=== PATIENT | female | born 1980 | race Caucasian/White ===

== ENCOUNTER → 2018-12-31 16:00 | Emergency (ER) | payer OTHER ==
[~2018-12-31 16:00] MED LIST: ALPRAZolam TAB* 0.5 MG PO ONE; Buprenorp/Nalox 8-2 MG FILM SL FILM ONE; Methylphenidate TAB* 10 MG PO ONE; QUEtiapine TAB* 100 MG PO ONE; Venlafaxine EXT RELEASE CAP* 75 MG PO ONE
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
[2018-12-31 19:01] VITALS: BP 108/75
== END | disposition home or self-care (01) ==
LOC: ED 16:00
DX: Z76.0 Encounter for issue of repeat prescription (principal); F41.9 Anxiety disorder, unspecified; F32.9 Major depressive disorder, single episode, unspecified
CPT/HCPCS: 99282; A9270-GY

== ENCOUNTER 2019-01-01 15:41 | Emergency (ER) | payer OTHER ==
[2019-01-01] MEDS ORDERED: Buprenorp/Nalox 8-2 MG FILM SL FILM ONE (16:54)
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
[2019-01-01] MEDS ORDERED: QUEtiapine TAB* 25 MG PO ONE (17:33)
[2019-01-01] MEDS ORDERED: ALPRAZolam TAB* 0.5 MG PO ONE (17:33)
[2019-01-01] MEDS ORDERED: Venlafaxine EXT RELEASE CAP* 75 MG PO ONE (17:33)
[2019-01-01] MEDS ORDERED: QUEtiapine TAB* 100 MG PO ONE (17:33)
[2019-01-01 17:53] VITALS: BP 121/66
== END 2019-01-01 17:52 | disposition home or self-care (01) ==
LOC: ED 15:41
DX: Z76.0 Encounter for issue of repeat prescription (principal); F41.9 Anxiety disorder, unspecified; F32.9 Major depressive disorder, single episode, unspecified; F17.290 Nicotine dependence, other tobacco product, uncomplicated; Z79.899 Other long term (current) drug therapy
CPT/HCPCS: 99282; A9270-GY

== ENCOUNTER 2019-05-02 18:09 | Emergency (ER) | payer OTHER ==
[2019-05-02 18:43] VITALS: BP 105/54
[2019-05-02] MEDS ORDERED: Albuterol 2.5 MG/3 ML NEB.SOL* (0.083%) INH ONE (19:42)
--- NOTE | 2019-05-02 19:42 | UC ---
Respiratory Complaint HPI - HPI Summary HPI Summary: per maxillofacial surgeon: "Productive cough and chest congestion x5 day. No measured fever, but felt hot/ cold chills. Tried tylenol and cough syrup prn w/ no relief. Cough worse at night. " -no fevers -hysterectomy + wheezing in chest. no h/o asthma but has needed alb for similar sx in past - History of Current Complaint Chief Complaint: UCRespiratory Stated Complaint: COUGH Time Seen by Provider: 05/02/19 18:12 Pain Intensity: 0 - Allergies/Home Medications Allergies/Adverse Reactions: Allergies Allergy/AdvReac Type Severity Reaction Status Date / Time ondansetron [From Zofran] Allergy Itching Verified 05/02/19 18:32 prochlorperazine Allergy Itching Verified 05/02/19 18:32 [From Compazine] promethazine [From Phenergan] Allergy Itching Verified 05/02/19 18:32 tramadol Allergy Hives Verified 05/02/19 18:32 Home Medications: Home Medications Meloxicam [Qmiiz Odt] 1 tab DAILY 05/02/19 [History Confirmed 05/02/19] QUEtiapine TAB* [Seroquel 100 MG *] 300 mg PO BEDTIME 05/02/19 [History Confirmed 05/02/19] PMH/Surg Hx/FS Hx/Imm Hx Previously Healthy: Yes Psychological History: Anxiety - Surgical History Surgical History: Yes Surgery Procedure, Year, and Place: Hysterectomy. RIGHT foot fracture, pins/ screws placed. cyst removed ovaries. scar tissues removed from intestine d/t e.coli infection as child - Family History Known Family History: Positive: Hypertension, Diabetes Negative: Respiratory Disease - no asthma - Social History Alcohol Use: Rare Substance Use Type: Other Substance Use Comment - Amount & Last Used: suboxone Smoking Status (MU): Light Every Day Tobacco Smoker Type: Cigarettes Amount Used/How Often: 1/2 PPD - Immunization History Most Recent Influenza Vaccination: states, long time ago Most Recent Pneumonia Vaccination: none Review of Systems All Other Systems Reviewed And Are Negative: Yes Constitutional: Positive: Negative, Chills, Fatigue Skin: Positive: Negative. Negative: Rash Eyes: Positive: Negative ENT: Positive: Sore Throat, Ear Ache, Nasal Discharge, Sinus Congestion Respiratory: Positive: Cough. Negative: Shortness Of Breath Cardiovascular: Positive: Negative. Negative: Palpitations, Chest Pain Gastrointestinal: Positive: Negative Genitourinary: Positive: Negative Motor: Positive: Negative Neurovascular: Positive: Negative Musculoskeletal: Positive: Negative Neurological: Positive: Negative Psychological: Positive: Negative Is Patient Immunocompromised?: No Physical Exam Triage Information Reviewed: Yes Appearance: Well-Appearing, No Pain Distress, Ill-Appearing - mild Vital Signs: Initial Vital Signs Temp 98.1 F 05/02/19 18:36 Pulse 64 05/02/19 18:36 Resp 16 05/02/19 18:36 BP 105/54 05/02/19 18:36 Pulse Ox 97 05/02/19 18:36 Eye Exam: Normal ENT Exam: Normal ENT: Positive: Pharyngeal erythema - + PND., Nasal congestion, TMs normal, Uvula midline. Negative: Tonsillar swelling, Tonsillar exudate, Sinus tenderness Neck exam: Normal Neck: Positive: Supple, Nontender, No Lymphadenopathy Respiratory: Positive: Normal breath sounds, No respiratory distress, No accessory muscle use, Rhonchi, Wheezing. Negative: Crackles, Stridor Cardiovascular Exam: Normal Cardiovascular: Positive: RRR Abdomen Description: Positive: Nontender, Soft Musculoskeletal Exam: Normal Neurological Exam: Normal Psychological Exam: Normal Skin Exam: Normal Respiratory Course/Dx - Course Course Of Treatment: -albuterol neb x 1 w/ improvement. improved breath sounds but still w/ wheezing throughout. -CXR read by myself - no e/o infiltrate appreciated -understands that this will be read tomorrow officially by radiaologist - Differential Dx/Diagnosis Differential Diagnosis/HQI/PQRI: Bronchitis, Lower Resp Infection, Sinusitis Provider Diagnosis: Bronchitis Discharge ED - Sign-Out/Discharge Documenting (check all that apply): Patient Departure All imaging exams completed and their final reports reviewed: No Studies - Discharge Plan Condition: Stable Disposition: HOME Prescriptions: Albuterol HFA INHALER* [Ventolin HFA Inhaler*] 2 puff INH Q4H PRN 10 Days #1 mdi PRN Reason: Cough guaiFENesin LIQ* [Robitussin*] 5 mg PO Q4H PRN 7 Days #120 udc PRN Reason: Cough methylPREDNISolone [Medrol Dosepak 4 MG*] 4 mg PO DAILY #1 ry Referrals: No Primary Care Phys,NOPCP [Primary Care Provider] - Additional Instructions: -We talked about the potential side effects of prednisone including but not limited too increased energy/decreased sleep, stomach upset, irritability, hunger, elevated blood sugars and blood pressures, problems with your adrenal glands and cut off of the blood supply going to your hip. 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 -We are using the smaller dose of prednisone to reduce risk of psychiatric side effects. You did say you have taken prednisone in the past. Stop the medicine and follow up immediately if you have psychiatric side effects. Please go to the ER if your symptoms worsen. Use the albuterol every 4- 6 hrs as needed for cough. -The radiologist will be reading your chest xray in the morning. You should be getting a telephone call if there is anything abnormal on the xray that I did not see. - Billing Disposition and Condition Condition: STABLE Disposition: Home
== END 2019-05-02 20:31 | disposition home or self-care (01) ==
LOC: UCCORT 18:09
DX: J40 Bronchitis, not specified as acute or chronic (principal); F17.210 Nicotine dependence, cigarettes, uncomplicated; Z90.710 Acquired absence of both cervix and uterus; Z88.8 Allergy status to other drugs, medicaments and biological substances; Z88.5 Allergy status to narcotic agent
CPT/HCPCS: 71046; 99212; G0463

== ENCOUNTER 2019-05-30 23:53 | Inpatient (IN) | payer OTHER ==
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
[2019-05-31 00:54] LABS: ABS Lymphocytes 1.2 10^3/ul (1.0-4.8); ABS Monocytes 0.3 10^3/ul (0-0.8); ABS Neutrophils 7.6 10^3/ul (1.5-7.7); Eosinophil % 0.2 %; Hematocrit 44 % (35-47); Hemoglobin 15.2 g/dL (12.0-16.0); Lymphocyte % 13.1 %; Mean Corpuscular HGB Conc 34 g/dL (31-36); Mean Corpuscular Hemoglobin 31 pg (27-31); Mean Corpuscular Volume 90 fL (80-97); Mean Platelet Volume 7.6 fL (7.4-10.4); Platelet Count 321 10^3/uL (150-450); Red Blood Count 4.92 10^6 /uL (3.70-4.87); Red Cell Distribution Width 13 % (10-15); White Blood Count 9.1 10^3/uL (3.5-10.8)
[2019-05-31 01:10] LABS: ALT 19 U/L (7-52); AST 24 U/L (13-39); Albumin 5.1 g/dL (3.2-5.2); Albumin/Globulin Ratio 1.8 (1-3); Alkaline Phosphatase 65 U/L (34-104); Anion Gap 10 mmol/L (2-11); Blood Urea Nitrogen 12 mg/dL (6-24); CO2 Carbon Dioxide 27 mmol/L (22-32); Chloride 103 mmol/L (101-111); EGFR African American 96.6 (>60); EGFR Non-African American 79.9 (>60); Globulin 2.9 g/dL (2-4); Glucose 119 mg/dL (70-100); Potassium 4.1 mmol/L (3.5-5.0); Sodium 140 mmol/L (135-145)
[2019-05-31 01:14] LABS: Urine Appearance Cloudy; Urine Bilirubin Negative (Negative); Urine Blood Negative (Negative); Urine Color Yellow; Urine Glucose Negative (Negative); Urine Ketones 1+ (Negative); Urine Nitrite Negative (Negative); Urine Protein Negative (Negative); Urine Specific Gravity 1.015 (1.010-1.030); Urine Urobilinogen Negative (Negative)
[2019-05-31 01:16] LABS: HCG Pregnancy 1.49 mIU/mL
[2019-05-31 01:20] LABS: Acetaminophen < 15 mcg/mL; Alcohol < 10 mg/dL (<10); Salicylate < 2.50 mg/dL (<30)
[2019-05-31 01:35] LABS: TSH (Thyroid Stimulating Horm) 1.16 mcIU/mL (0.34-5.60)
[2019-05-31 01:36] LABS: Urine Benzodiazepine Screen Presumptive Positive (None Detect); Urine Opiates Screen Presumptive Positive (None Detect)
[2019-05-31] MEDS ORDERED: LORazepam TAB(*) 1 MG PO ONE (01:48)
[2019-05-31] MEDS ORDERED: Prazosin CAP* 1 MG PO ONE (03:36)
[2019-05-31] MEDS ORDERED: QUEtiapine TAB* 300 MG PO ONE (03:36)
[2019-05-31] MEDS ORDERED: CMCS: Meloxicam(NF) 7.5 MG TAB PO SCH (04:00)
[2019-05-31] MEDS: Nicotine* 4MG (FRUIT FLAVOR) GUM PO PRN ×2 (04:13→22:40)
[2019-05-31] MEDS ORDERED: Haloperidol INJ IV/IM* 5 MG/ML AMP IM ONE (04:15)
[2019-05-31] MEDS ORDERED: Nicotine* 2MG (FRUIT FLAVOR) GUM PO PRN (09:04)
[2019-05-31] MEDS ORDERED: Al Hydrox/Mg Hydrox/Simet LIQ* 30 ML UDC PO PRN (09:04)
[2019-05-31] MEDS ORDERED: Acetaminophen TAB* 325 MG PO PRN (09:04)
[2019-05-31] MEDS ORDERED: Albuterol HFA INHALER* 8 gm MDI INH PRN (09:06)
[2019-05-31] MEDS ORDERED: MELOXICAM 15 MG PO SCH (09:08)
[2019-05-31] MEDS: hydrOXYzine HCL TAB* 50 MG PO PRN (17:58)
[2019-05-31] MEDS ORDERED: Prazosin CAP* 1 MG PO SCH (18:00)
[2019-05-31] MEDS: Vitamin THERAPEUTIC TAB PO SCH (19:21)
[2019-05-31] MEDS: ALPRAZolam TAB* 0.5 MG PO SCH (19:21)
[2019-05-31] MEDS: Buprenorp/Nalox 8-2 MG FILM SL FILM SCH (19:24)
[2019-05-31] MEDS: Venlafaxine EXT RELEASE CAP* 75 MG PO SCH (19:52)
[2019-05-31] MEDS: ESTRADIOL 1 MG PO SCH (19:54)
[2019-05-31] MEDS: MELOXICAM 15 MG PO SCH (19:55)
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
[2019-05-31] MEDS: Prazosin CAP* 1 MG PO SCH (21:25)
[2019-05-31] MEDS: QUEtiapine TAB* 100 MG PO SCH (21:25)
[2019-06-01] MEDS: Nicotine* 4MG (FRUIT FLAVOR) GUM PO PRN ×3 (07:43→17:20)
[2019-06-01] MEDS: Venlafaxine EXT RELEASE CAP* 75 MG PO SCH (08:17)
[2019-06-01] MEDS: Vitamin THERAPEUTIC TAB PO SCH (08:18)
[2019-06-01] MEDS: ALPRAZolam TAB* 0.5 MG PO SCH ×2 (08:18→20:17)
[2019-06-01] MEDS: MELOXICAM 15 MG PO SCH (08:18)
[2019-06-01] MEDS: Buprenorp/Nalox 8-2 MG FILM SL FILM SCH ×2 (08:20→22:19)
[2019-06-01] MEDS: ESTRADIOL 1 MG PO SCH (08:20)
[2019-06-01] MEDS ORDERED: Venlafaxine EXT RELEASE CAP* 75 MG PO SCH (09:00)
[2019-06-01] MEDS: QUEtiapine TAB* 100 MG PO SCH (22:18)
[2019-06-01] MEDS: Prazosin CAP* 1 MG PO SCH (22:19)
[2019-06-02] MEDS: Venlafaxine EXT RELEASE CAP* 75 MG PO SCH (08:01)
[2019-06-02] MEDS: Vitamin THERAPEUTIC TAB PO SCH (08:01)
[2019-06-02] MEDS: ALPRAZolam TAB* 0.5 MG PO SCH ×2 (08:02→20:13)
[2019-06-02] MEDS: Meloxicam(NF) 7.5 MG TAB PO SCH (08:03)
[2019-06-02 08:42] LABS: HDL Cholesterol 47.4 mg/dL
[2019-06-02] MEDS: Buprenorp/Nalox 8-2 MG FILM SL FILM SCH ×2 (09:20→21:51)
[2019-06-02] MEDS: ESTRADIOL 1 MG PO SCH (09:23)
[2019-06-02] MEDS: Nicotine* 4MG (FRUIT FLAVOR) GUM PO PRN ×2 (11:22→14:28)
[2019-06-02] MEDS ORDERED: LORazepam TAB(*) 1 MG PO ONE (12:40)
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
[2019-06-02] MEDS: Prazosin CAP* 1 MG PO SCH (21:50)
[2019-06-02] MEDS: QUEtiapine TAB* 100 MG PO SCH (21:51)
[2019-06-03] MEDS: Venlafaxine EXT RELEASE CAP* 75 MG PO SCH (09:39)
[2019-06-03] MEDS: Vitamin THERAPEUTIC TAB PO SCH (09:39)
[2019-06-03] MEDS: Meloxicam(NF) 7.5 MG TAB PO SCH (09:40)
[2019-06-03] MEDS: ALPRAZolam TAB* 0.5 MG PO SCH (09:42)
[2019-06-03] MEDS: ESTRADIOL 1 MG PO SCH (09:42)
[2019-06-03] MEDS: Nicotine* 4MG (FRUIT FLAVOR) GUM PO PRN ×2 (09:44→15:24)
[2019-06-03] MEDS: LORazepam TAB(*) 1 MG PO SCH ×2 (10:00→19:42)
[2019-06-03] MEDS: Buprenorp/Nalox 8-2 MG FILM SL FILM SCH ×2 (10:01→19:43)
--- NOTE | 2019-06-03 10:59 | PN ---
Subjective - Subjective Date of Service: 06/03/19 Service Type: 71381 Hosp care 25 min moderate complexity Subjective: Patient reports "feeling like I don't want to be alive." She reports decrease in frequency of nightmares. She agrees to change alprazolam to lorazepam. She reports continued anxiety; utilizing distracting and avoidance to alleviate this. Patient education done in regards to chronic benzodiazepine use and dependence. She is receptive to suggestion to discuss long taper with outpatient psychiatrist. Objective - General Observations Appearance: Well Groomed Stature: Thin Posture: WNL Eye Contact: Average Behavior/Activity: WNL - Interaction Observations Attitude Towards Examiner: Cooperative, Defensive Stated Mood: Dysphoric Affect: Restricted Speech Pattern/Tone: Clear, Appropriate, Normal Volume Thought Process: Circumstantial Perception: WNL Thought Content: Preoccupation/Ruminations, Depressive Thought Process: Lethality: Passive Wish Hallucination Type: Denies Delusion Type: Denies - Cognitive Function Orientation: A&O x 4 Level of Consciousness: Alert Cognition: WNL Estimated Intelligence: Normal Insight: Mostly Blames Others for Problems Judgment Within Normal Limits: No Ability to Make Reasonable Decisions: Moderately Impaired - Medication Compliance Cooperative with Inpatient Medication Regimen: Yes - Group Participation Participates in Group Activities: Partial Assessment - Assessment Merits Inpatient Hospitalization: For Immediate Safety, For Stabilization Inpatient DSM-V Dx: F43.12 Clinical Impression: 38yo wf, domiciled, unemployed with history of mood disorder and PTSD, who presented to the ED seeking admission after a failed suicide attempt. She merits hospitalization for immediate safety and stabilization. Plan - Plan Treatment Plan: Name: HUNTER DE SOUZA Birthdate: 1980 [id number] continue acute intensive psychiatric treatment. may decrease to q30min and allow staff pass. DC alprazolam, start lorazepam 2mg BID. encouraged to discuss slow benzodiazepine taper with outpatient provider. collaborate with outpatient providers: Cherise Mora at [facility] and [facility]. patient may use computer to coordinate with [facility] and [facility] Continued Medication Management: Start Medication Medications: Current Medications Acetaminophen (Tylenol Tab*) 650 mg PO Q4H PRN PRN Reason: PAIN or TEMP > 101 F Al Hydrox/Mg Hydrox/Simethicone (Maalox Plus*) 30 ml PO Q4H PRN PRN Reason: INDIGESTION Albuterol (Ventolin Hfa Inhaler*) 2 puff INH Q4H PRN PRN Reason: COUGH Buprenorphine/Naloxone (Suboxone 8 Mg-2 Mg Sl Film) 1 each SL FILM BID [facility] Last Admin: 06/03/19 10:01 Dose: 1 each Estradiol (Estradiol Tab(Nf)) 1 mg PO DAILY [facility] Last Admin: 06/03/19 09:42 Dose: 1 mg Hydroxyzine HCl (Atarax Tab*) 50 mg PO Q6H PRN PRN Reason: .ANXIETY Last Admin: 05/31/19 17:58 Dose: 50 mg Lorazepam (Ativan Tab(*)) 2 mg PO BID [facility] Last Admin: 06/03/19 10:00 Dose: 2 mg Meloxicam (Mobic(Nf)) 15 mg PO DAILY [facility] Last Admin: 06/03/19 09:40 Dose: 15 mg Multivitamins (Theragran Tab*) 1 tab PO DAILY [facility] Last Admin: 06/03/19 09:39 Dose: 1 tab Nicotine Polacrilex (Nicotine Gum*) 4 mg PO Q2H PRN PRN Reason: CRAVING Last Admin: 06/03/19 09:44 Dose: 4 mg Nicotine Polacrilex (Nicotine Gum*) 2 mg PO Q2H PRN PRN Reason: CRAVINGS Prazosin HCl (Minipress Cap*) 3 mg PO 2100 [facility] Last Admin: 06/02/19 21:50 Dose: 3 mg Quetiapine Fumarate (Seroquel Tab*) 300 mg PO BEDTIME [facility] Last Admin: 06/02/19 21:51 Dose: 300 mg Venlafaxine HCl (Effexor Xr Cap*) 225 mg PO DAILY [facility] Last Admin: 06/03/19 09:39 Dose: 75 mg - Discharge Plan Discharge Plan: Inpatient Hospitalization
[2019-06-03] MEDS: hydrOXYzine HCL TAB* 50 MG PO PRN (18:12)
[2019-06-03] MEDS: Prazosin CAP* 1 MG PO SCH (19:43)
[2019-06-03] MEDS: QUEtiapine TAB* 100 MG PO SCH (19:43)
[2019-06-04] MEDS: ESTRADIOL 1 MG PO SCH (07:56)
[2019-06-04] MEDS: Meloxicam(NF) 7.5 MG TAB PO SCH (07:56)
[2019-06-04] MEDS: LORazepam TAB(*) 1 MG PO SCH ×2 (07:56→20:27)
[2019-06-04] MEDS: Venlafaxine EXT RELEASE CAP* 75 MG PO SCH (07:57)
[2019-06-04] MEDS: Vitamin THERAPEUTIC TAB PO SCH (07:57)
[2019-06-04] MEDS: Buprenorp/Nalox 8-2 MG FILM SL FILM SCH ×2 (09:06→21:59)
[2019-06-04] MEDS: Nicotine* 4MG (FRUIT FLAVOR) GUM PO PRN ×2 (11:12→19:13)
--- NOTE | 2019-06-04 14:06 | PN ---
Subjective - Subjective Date of Service: 06/04/19 Service Type: 79050 Hosp care 25 min moderate complexity Subjective: Patient reports significant anxiety without specific triggers. She is irritable and defensive. She states frustration that her treatment plan review denoted poor attendance in groups. She reports multiple external stressors and is quick to reject personal accountability. She declines to allow collaboration with outpatient psychiatrist and states she does "not want to change all my meds." She exhibits poor insight into symptoms and therapeutic suggestions. She is encouraged to solidify discharge plans with SW. Objective - General Observations Appearance: Well Groomed Stature: Thin Posture: WNL Eye Contact: Intense Behavior/Activity: WNL - Interaction Observations Attitude Towards Examiner: Defensive, Mistrustful Stated Mood: Irritable Affect: Restricted Speech Pattern/Tone: Clear, Appropriate, Normal Volume Thought Process: Goal Directed, Circumstantial Perception: WNL Thought Content: WNL Hallucination Type: Denies Delusion Type: Denies - Cognitive Function Orientation: A&O x 4 Level of Consciousness: Alert Cognition: WNL Estimated Intelligence: Normal Insight: Mostly Blames Others for Problems Judgment Within Normal Limits: No Ability to Make Reasonable Decisions: Moderately Impaired - Medication Compliance Cooperative with Inpatient Medication Regimen: Partial - Group Participation Participates in Group Activities: Partial Assessment - Assessment Merits Inpatient Hospitalization: For Immediate Safety, For Stabilization, For Discharge Planning Inpatient DSM-V Dx: F43.12 Clinical Impression: 38yo wf, domiciled, unemployed with history of mood disorder and PTSD, who presented to the ED seeking admission after a failed suicide attempt. She merits hospitalization for immediate safety and discharge planning. Plan - Plan Treatment Plan: Name: HUNTER DE SOUZA Birthdate: 1980 [id number] continue acute intensive psychiatric treatment. may decrease to q30min and allow staff pass. patient is taking venlafaxine 75mg of prescribed 225mg. continue other medications. encouraged to discuss slow benzodiazepine taper with outpatient provider. collaborate with outpatient providers: Cherise Mora at [facility] and [facility]. patient may use computer to coordinate with [facility] and [facility] Medications: Current Medications Acetaminophen (Tylenol Tab*) 650 mg PO Q4H PRN PRN Reason: PAIN or TEMP > 101 F Al Hydrox/Mg Hydrox/Simethicone (Maalox Plus*) 30 ml PO Q4H PRN PRN Reason: INDIGESTION Albuterol (Ventolin Hfa Inhaler*) 2 puff INH Q4H PRN PRN Reason: COUGH Buprenorphine/Naloxone (Suboxone 8 Mg-2 Mg Sl Film) 1 each SL FILM BID [facility] Last Admin: 06/04/19 09:06 Dose: 1 each Estradiol (Estradiol Tab(Nf)) 1 mg PO DAILY [facility] Last Admin: 06/04/19 07:56 Dose: 1 mg Hydroxyzine HCl (Atarax Tab*) 50 mg PO Q6H PRN PRN Reason: .ANXIETY Last Admin: 06/03/19 18:12 Dose: 50 mg Lorazepam (Ativan Tab(*)) 2 mg PO BID [facility] Last Admin: 06/04/19 07:56 Dose: 2 mg Meloxicam (Mobic(Nf)) 15 mg PO DAILY [facility] Last Admin: 06/04/19 07:56 Dose: 15 mg Multivitamins (Theragran Tab*) 1 tab PO DAILY [facility] Last Admin: 06/04/19 07:57 Dose: 1 tab Nicotine Polacrilex (Nicotine Gum*) 4 mg PO Q2H PRN PRN Reason: CRAVING Last Admin: 06/04/19 11:12 Dose: 4 mg Nicotine Polacrilex (Nicotine Gum*) 2 mg PO Q2H PRN PRN Reason: CRAVINGS Prazosin HCl (Minipress Cap*) 3 mg PO 2100 [facility] Last Admin: 06/03/19 19:43 Dose: 3 mg Quetiapine Fumarate (Seroquel Tab*) 300 mg PO BEDTIME [facility] Last Admin: 06/03/19 19:43 Dose: 300 mg Venlafaxine HCl (Effexor Xr Cap*) 225 mg PO DAILY [facility] Last Admin: 06/04/19 07:57 Dose: 75 mg - Discharge Plan Discharge Plan: Outpatient Follow Up Outpatient Program: Private Clinician(s)
[2019-06-04] MEDS: hydrOXYzine HCL TAB* 50 MG PO PRN (15:32)
[2019-06-04] MEDS: QUEtiapine TAB* 100 MG PO SCH (20:28)
[2019-06-04] MEDS: Prazosin CAP* 1 MG PO SCH (20:30)
[2019-06-05 08:25] VITALS: BP 103/72
[2019-06-05] MEDS: ESTRADIOL 1 MG PO SCH (08:26)
[2019-06-05] MEDS: LORazepam TAB(*) 1 MG PO SCH (08:27)
[2019-06-05] MEDS: Venlafaxine EXT RELEASE CAP* 75 MG PO SCH (08:27)
[2019-06-05] MEDS: Vitamin THERAPEUTIC TAB PO SCH (08:27)
[2019-06-05] MEDS: Meloxicam(NF) 7.5 MG TAB PO SCH (08:28)
[2019-06-05] MEDS: Buprenorp/Nalox 8-2 MG FILM SL FILM SCH (11:51)
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
== END 2019-06-05 11:50 | disposition home or self-care (01) | DRG 755 ==
LOC: ED 23:53 → BSU 05-31 06:30
PROVIDERS: ADMIT Psychiatry & Neurology Psychiatry; ATTEND Psychiatry & Neurology Psychiatry
DX: F43.12 Post-traumatic stress disorder, chronic (principal); F33.1 Major depressive disorder, recurrent, moderate; R45.851 Suicidal ideations; F11.21 Opioid dependence, in remission; G89.29 Other chronic pain; M54.9 Dorsalgia, unspecified; G43.909 Migraine, unspecified, not intractable, without status migrainosus; F17.210 Nicotine dependence, cigarettes, uncomplicated; Z56.0 Unemployment, unspecified; Z91.5 Personal history of self-harm; Z90.710 Acquired absence of both cervix and uterus; Z88.6 Allergy status to analgesic agent; Z88.8 Allergy status to other drugs, medicaments and biological substances
CPT/HCPCS: 36415; 80053; 80061; 80307; 80320; 80329; 81003; 83036; 84443; 84702; 85025; 99222; 99232; 99238; 99285; A9270-GY; G0480; J1630

== ENCOUNTER 2019-11-22 14:45 | Emergency (ER) | payer OTHER ==
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
[2019-11-22 15:58] LABS: ABS Lymphocytes 1.7 10^3/ul (1.0-4.8); ABS Monocytes 0.3 10^3/ul (0-0.8); ABS Neutrophils 4.4 10^3/ul (1.5-7.7); Eosinophil % 0.2 %; Hematocrit 39 % (35-47); Hemoglobin 13.1 g/dL (12.0-16.0); Lymphocyte % 26.1 %; Mean Corpuscular HGB Conc 34 g/dL (31-36); Mean Corpuscular Hemoglobin 31 pg (27-31); Mean Corpuscular Volume 91 fL (80-97); Mean Platelet Volume 7.1 fL (7.4-10.4); Nucleated Red Blood Cells % 0.1; Platelet Count 260 10^3/uL (150-450); Red Blood Count 4.26 10^6 /uL (3.70-4.87); Red Cell Distribution Width 13 % (10-15); White Blood Count 6.4 10^3/uL (3.5-10.8)
[2019-11-22 16:17] LABS: ALT 64 U/L (7-52); AST 51 U/L (13-39); Acetaminophen < 15 mcg/mL; Albumin 3.9 g/dL (3.2-5.2); Albumin/Globulin Ratio 1.6 (1-3); Alcohol < 10 mg/dL (<10); Alkaline Phosphatase 48 U/L (34-104); Anion Gap 4 mmol/L (2-11); BUN/Creatinine Ratio 20.8 (8-20); Blood Urea Nitrogen 15 mg/dL (6-24); CO2 Carbon Dioxide 29 mmol/L (22-32); Calcium 8.8 mg/dL (8.6-10.3); Chloride 107 mmol/L (101-111); EGFR African American 108.6 (>60); EGFR Non-African American 89.7 (>60); Globulin 2.5 g/dL (2-4); Glucose 100 mg/dL (70-100); Potassium 3.9 mmol/L (3.5-5.0); Salicylate < 2.50 mg/dL (<30); Sodium 140 mmol/L (135-145); Total Protein 6.4 g/dL (6.4-8.9)
[2019-11-22 16:32] LABS: TSH (Thyroid Stimulating Horm) 0.85 mcIU/mL (0.34-5.60)
[2019-11-22 17:11] LABS: Urine Appearance Cloudy; Urine Bilirubin Negative (Negative); Urine Blood Negative (Negative); Urine Color Yellow; Urine Glucose Negative (Negative); Urine Ketones Negative (Negative); Urine Nitrite Negative (Negative); Urine Protein Negative (Negative); Urine Specific Gravity 1.021 (1.010-1.030); Urine Urobilinogen Negative (Negative)
[2019-11-22 17:36] LABS: Urine Benzodiazepine Screen Presumptive Positive (None Detect); Urine Opiates Screen None Detected (None Detect)
[2019-11-22] MEDS ORDERED: hydrOXYzine HCL TAB* 50 MG PO ONE (17:56)
[2019-11-22 20:54] VITALS: BP 0/0
== END 2019-11-22 21:00 | disposition home or self-care (01) ==
LOC: ED 14:45
DX: F41.9 Anxiety disorder, unspecified (principal); F43.10 Post-traumatic stress disorder, unspecified; F90.9 Attention-deficit hyperactivity disorder, unspecified type; F32.9 Major depressive disorder, single episode, unspecified; F17.200 Nicotine dependence, unspecified, uncomplicated; Z79.899 Other long term (current) drug therapy
CPT/HCPCS: 36415; 80053; 80307; 80320; 80329; 81003; 84443; 85025; 99285; A9270-GY; G0480